=== PATIENT | male | born 1930 | race Caucasian/White ===

== ENCOUNTER 2018-09-12 05:53 | Day surgery (SDC) | payer OTHER ==
[~2018-09-12] VITALS: Ht 162.6 cm; Wt 67.7 kg
[~2018-09-12 05:53] MED LIST: SODIUM CHLORIDE 0.9% 1,000 ML IV ONE
[2018-09-12] MEDS ORDERED: ALBUTEROL SULFATE 2.5 MG/0.5 ML NEB SOLUTION NEB ONE (05:54)
[2018-09-12] MEDS ORDERED: LIDOCAINE 2% 30 ML JELLY TP ONE (05:54)
[2018-09-12] MEDS ORDERED: BENZOCAINE 20% 50 MCG/SPRAY 57 GM TP ONE (05:54)
[2018-09-12] MEDS ORDERED: LIDOCAINE 4% 50 ML SOLUTION TP ONE (05:54)
[2018-09-12] MEDS ORDERED: SODIUM CHLORIDE 0.9% 1,000 ML IV ONE (06:30)
[2018-09-12 07:15] LABS: GLUCOMETER DEV NAME(LOC) SDS.; GLUCOSE,POINT OF CARE 150 MG/DL (70-110)
[2018-09-12] MEDS ORDERED: FentaNYL CITRATE-PF 100 MCG/2 ML VIAL ONE (07:33)
[2018-09-12] MEDS ORDERED: MIDAZOLAM HCL 2 MG/2 ML VIAL ONE (07:33)
[2018-09-12] MEDS ORDERED: MethylPREDNISolone SOD SUCC 125 MG/2 ML VIAL ONE (08:43)
[2018-09-12] MEDS ORDERED: MethylPREDNISolone SOD SUCC 125 MG/2 ML VIAL IVP ONE (08:45)
[2018-09-12] MEDS ORDERED: OXYGEN THERAPY IH SCH (20:00)
== END 2018-09-12 10:20 | disposition home or self-care (01) ==
LOC: SURGERY 05:53
PROVIDERS: ATTEND Internal Medicine Critical Care Medicine
DX: J38.4 Edema of larynx (principal); B37.0 Candidal stomatitis; I10 Essential (primary) hypertension; E78.5 Hyperlipidemia, unspecified; I25.10 Atherosclerotic heart disease of native coronary artery without angina pectoris
CPT/HCPCS: 31623; 31624; 71045; 82962; 87015; 87070; 87101; 87205; 87206; 87220; 88108; 88312; J2250; J2930; J3010; J7030

== ENCOUNTER 2020-05-23 15:07 | Emergency (ER) | payer OTHER ==
[~2020-05-23] VITALS: Ht 152.4 cm; Wt 79.5 kg
[2020-05-23 17:12] LABS: GLUCOSE,POINT OF CARE 88 MG/DL (70-110)
[2020-05-23 19:10] VITALS: BP 143/70
== END 2020-05-23 18:00 | disposition short-term general hospital (02) ==
LOC: EMS 15:10
DX: I99.9 Unspecified disorder of circulatory system (principal)

== ENCOUNTER → 2022-04-29 | Day surgery (SDC) | payer OTHER ==
[~2022-04-29] VITALS: Ht 162.6 cm; Wt 65.9 kg
[~2022-04-29] MED LIST changes: +LIDOCAINE/PF 2% 5 ML VIAL IM ONE; +PROPOFOL 1% 20 ML VIAL IVP ONE; +SODIUM CHLORIDE 0.9% 1,000 ML ONE
[2022-04-29 08:37] LABS: COVID AG,FIA SOURCE NASOPHARYNGEAL
[2022-04-29 09:26] LABS: GLUCOMETER DEV NAME(LOC) SDS.; GLUCOSE,POINT OF CARE 134 MG/DL (70-110)
== END | disposition home or self-care (01) ==
LOC: SURGERY 08:19
PROVIDERS: ATTEND Internal Medicine Gastroenterology
DX: D12.2 Benign neoplasm of ascending colon (principal); D12.3 Benign neoplasm of transverse colon; K64.8 Other hemorrhoids; E11.9 Type 2 diabetes mellitus without complications; I10 Essential (primary) hypertension; E78.5 Hyperlipidemia, unspecified; Z20.822 Contact with and (suspected) exposure to COVID-19; Z79.899 Other long term (current) drug therapy; Z98.890 Other specified postprocedural states
CPT/HCPCS: 45385; 45380; 82962; 88305; 87426; C1769; J2704; J3490; J7030; C9803